=== PATIENT | female | born 1960 | race Asian ===

== ENCOUNTER 2016-01-20 08:36 | Outpatient (RCR) | payer BC ==
[2016-01-20 09:08] LABS: MEAN CORPUSCULAR HEMOGLOBIN 29.1 PG (26.0-34.0); MEAN CORPUSCULAR HGB CONC 33.7 g/dL (31.0-37.0); MEAN PLATELET VOLUME 8.5 FL (6.0-9.5); WHITE BLOOD COUNT 4.53 10^3uL (4.0-11.0)
[2016-01-20 09:21] LABS: ALBUMIN 4.2 g/dL (3.4-5.0); ANION GAP 15.2 MEQ/L (3-15); CALCULATED IONIZED CALCIUM 3.9 mg/dL (3.8-4.6); TOTAL PROTEIN 8.4 g/dL (6.4-8.5)
[2016-01-21 14:04] LABS: HEP C COPIES ML Not Detected
== END 2016-04-19 | disposition home or self-care (01) ==
LOC: LAB 08:36
PROVIDERS: ATTEND Internal Medicine Gastroenterology
DX: B19.20 Unspecified viral hepatitis C without hepatic coma (principal)
CPT/HCPCS: 36415; 80053; 85027; 87522

== ENCOUNTER 2016-04-20 10:32 | Outpatient (RCR) | payer BC ==
[~2016-04-20 10:32] MED LIST: CYCL5TAB PO; ZLP5T PO
[2016-04-20 11:10] LABS: ALBUMIN 4.3 g/dL (3.4-5.0); TOTAL PROTEIN 7.6 g/dL (6.4-8.5)
[2016-04-21 14:59] LABS: HEP C COPIES ML Not Detected
== END 2016-07-19 | disposition home or self-care (01) ==
LOC: LAB 10:32
PROVIDERS: ATTEND Internal Medicine Gastroenterology
DX: R94.5 Abnormal results of liver function studies (principal); B19.20 Unspecified viral hepatitis C without hepatic coma
CPT/HCPCS: 36415; 80076; 87522